=== PATIENT | female | born 1945 | race Caucasian/White ===

== ENCOUNTER 2025-02-12 11:40 | Emergency (ER) | payer MEDICARE, SELFPAY ==
[2025-02-12 12:29] VITALS: BP 137/64; PULSE 55; RESP 15; TEMP 36.8; O2SAT 98; BMI 23.3
--- NOTE | 2025-02-12 12:47 | ED.ABDPAIN ---
HPI - Abdominal Pain General Chief Complaint: Abdominal Pain Stated Complaint: Bleeding Hemorrhoids, increasing a couple weeks Time Seen by Provider: 02/12/25 11:48 Source: patient Mode of arrival: Family Vehicle History of Present Illness HPI narrative: Ms. Santiago is a pleasant 79-year-old female with a past medical history of internal hemorrhoids, hyperlipidemia who presents to the emergency department for lower abdominal pain and bleeding hemorrhoids x4 days. Patient describes over the last year she has had worsening lower abdominal pain, constipation, and more significant internal hemorrhoids however just on Saturday of this week they started to bleed requiring her to wear a pad in her underwear. Saturday and yesterday she soaked a pad with blood. Today she had blood dripping down her leg after going to the bathroom but it has since stopped. She has been unable to have a bowel movement 4 days due to constipation. She is having pain across her entire lower abdomen, she has no rectal pain unless she attempts to bear down. Describes her hemorrhoids as only internal however they do bulge out so she pushes them back in. She has had hemorrhoids for over 50 years and was told simply to push them back in however this is the 1st time they have bled. She does not have a primary care appointment until next month and is scheduled for an colonoscopy in April however due to her worsening pain and bleeding she presents to the ER after being instructed to do so by her primary care office triage nurse. She admits to bright red blood coming from the rectum and decreased appetite. She denies chest pain, shortness of breath, fevers, black or tarry stools, vomiting. She does not take any blood thinners. No history of abdominal surgeries. Her only prescription medication is pravastatin. She is not using any stool softeners or [id number] medications. Related Data Allergies Allergy/AdvReac Type Severity Reaction Status Date / Time No Known Drug Allergies Allergy Verified 02/12/25 12:29 Review of Systems Review of Systems ROS Unobtainable: All systems reviewed & are unremarkable except as noted in HPI and below Patient History Social History Smoking Status: Never smoker Smoking Status: Never smoker Exam Narrative Exam Narrative: GENERAL: 79 year old patient appears stated age. Well-developed active appearing patient, in no acute distress. HEAD: Atraumatic. Normocephalic. EYES: No scleral icterus. No injection or drainage. NECK: Trachea midline. Cervical ROM intact. CARDIOVASCULAR: Slightly slow rate and regular rhythm. RESPIRATORY: ?Nonlabored respirations. ?Speaking in clear, full sentences. ?Clear to auscultation. Breath sounds equal bilaterally. No wheezes, rales, or rhonchi. ? GASTROINTESTINAL: Tenderness to palpation across the entire lower abdomen, most significant the suprapubic region. Abdomen is soft, nondistended, bowel sounds present, no rebound or guarding. Patient gave verbal consent for rectal exam, female nurse student financial aid manager was present. No gross blood on exam. No external hemorrhoids. There was some palpable mass/internal hemorrhoid on the left with tenderness. EXTREMITIES: No LE edema BACK: No CVA tenderness. NEURO: AOx3. ?Clear speech. ?Moves all 4 extremities appropriately. SKIN: No rash or erythema of visible areas Initial Vital Signs Initial Vital Signs: Vital Signs Temperature 98.2 F 02/12/25 12:29 Pulse Rate 55 L 02/12/25 12:29 Respiratory Rate 15 02/12/25 12:29 Blood Pressure 137/64 02/12/25 12:29 Pulse Oximetry 98 02/12/25 12:29 Oxygen Delivery Method Room Air 02/12/25 12:29 Course Orders Ordered: ED Orders 02/12/25 13:00 CT abdomen pelvis w con Stat 02/12/25 13:15 Complete Blood Count AUTO DIFF Stat Comprehensive Metabolic Panel Stat Lipase Stat PT [Prothrombin Time INR] Stat PTT Partial Thromboplastin [place] Stat 02/12/25 15:08 Urinalysis and Microscopic Stat Urine Culture Stat Discontinued Medications Sodium Chloride (Normal Saline 0.9%) 1,000 mls @ 1,000 mls/hr IV BOLUS ONE Stop: 02/12/25 13:58 Last Infusion: 02/12/25 14:30 Dose: Infused Documented By: Admin: 02/12/25 13:26 Dose: 1,000 mls/hr Documented By: TIFFANIE Ondansetron HCl (Ondansetron 4 Mg/2 Ml Inj) 4 mg IV NOW ONE Stop: 02/12/25 13:00 Last Admin: 02/12/25 16:56 Dose: Not Given Documented By: TIFFANIE Pantoprazole Sodium (Pantoprazole 40 Mg Vial) 40 mg IV NOW ONE Stop: 02/12/25 13:00 Last Admin: 02/12/25 13:26 Dose: 40 mg Documented By: SB Vital Signs Vital signs: Vital Signs - 8 hr 02/12/25 12:29 02/12/25 17:00 Temperature 98.2 F 97.8 F Pulse Rate 55 L 54 L Respiratory Rate 15 16 Blood Pressure 137/64 149/58 H Pulse Oximetry 98 98 Oxygen Delivery Method Room Air Room Air MDM - Abdominal Pain Lab Data 02/12/25 13:15 02/12/25 13:15 Labs: Lab Results 02/12/25 02/12/25 Range/Units 13:15 15:08 WBC 6.1 (4.5-11.0) X10^3/uL RBC 3.93 L (4.0-5.2) X10^6/uL Hgb 12.2 (12.0-16.0) g/dL Hct 36.2 (36-46) % MCV 92.1 (80-100) fL MCH 31.0 (26-34) PG MCHC 33.7 (30-36) % RDW 12.7 (11.6-14.8) % Plt Count 220 (150-400) X10^3/uL Neut % (Auto) 65.5 (50-75) % Lymph % (Auto) 21.4 L (25-40) % [place] % (Auto) 9.6 (3-14) % Eos % (Auto) 2.9 (2-4) % Baso % (Auto) 0.6 (0-2) % Neut # (Auto) 4000 (6557-1513) /uL Lymph # (Auto) 1300 (5675-7272) /uL [place] # (Auto) 600 (0-900) /uL Eos # (Auto) 200 (0-450) /uL Baso # (Auto) 0 (0-100) /uL PT 11.6 (9.4-12.5) SECONDS INR 1.0 (0.9-1.3) APTT 30 (25.1-36.5) SECONDS Sodium 138 (137-145) mmol/L Potassium 3.9 (3.4-5.1) mmol/L Chloride 104 (98-107) mmol/L Carbon Dioxide 27 (22-32) mmol/L BUN 15 (7-17) mg/dL Creatinine 0.71 (0.52-1.04) mg/dL Estimated GFR > 60 (>60) mL/min BUN/Creatinine Ratio 21.1 (6-22) Glucose 106 H (70-99) mg/dL Calcium 9.0 (8.4-10.2) mg/dL Total Bilirubin 0.6 (0.2-1.3) mg/dL AST 31 (14-36) IU/L ALT 19 (<35) IU/L Alkaline Phosphatase 68 (38-126) U/L Total Protein 6.9 (6.3-8.2) g/dL Albumin 3.9 (3.5-5.0) g/dL Globulin 3.0 (1.7-4.1) g/dL Albumin/Globulin Ratio 1.3 (1.0-2.8) Lipase 28 (23-300) U/L Urine Color Yellow Urine Appearance Clear Urine pH 6.0 (4.5-8.0) Ur Specific [place] 1.010 (1.000-1.035) Urine Protein Negative (Negative) Urine Glucose (UA) Negative (Negative) g/dL Urine Ketones Trace H (NEGATIVE) Urine Occult Blood Trace-intact (Negative) Urine Nitrate Negative (Negative) Urine Bilirubin Negative (NEGATIVE) Urine Urobilinogen 0.2 (0.2) E.U./dL Ur Leukocyte Esterase 2+ H (NEGATIVE) Urine RBC None seen (0-5/HPF) Urine WBC 0-1/hpf (0-5/HPF) Ur Squamous Epith Cells None seen (0-5/HPF) Urine Bacteria Few (2-10) H (None) Ur Culture Indicated? Specimen cultured Vol Urine Centrifuged 10ml (spun) Imaging Data CT scan - abdomen/pelvis: Radiologist's Impression: PROCEDURE: CT ABDOMEN PELVIS W CON INDICATIONS: lower abd pain; constipation; bleeding hemorrhoids TECHNIQUE: After the administration of intravenous contrast, axial sections acquired from the lung bases to the pubic symphysis. Coronal and sagittal reformats were performed. For radiation dose reduction, the following was used: automated exposure control, adjustment of mA and/or kV according to patient size. COMPARISON: None. FINDINGS: Image quality: Diagnostic. Lower Chest: No significant findings. ABDOMEN: Liver: No solid mass. Gallbladder: No radiopaque gallstones or wall thickening. Biliary ducts: No biliary dilation. Pancreas: No ductal dilation. Spleen: Size is within normal limits. Adrenal Glands: No adrenal nodules. Kidneys and Ureters: No hydronephrosis. No solid mass. No complex renal cystic lesion which requires follow up. Stomach and Bowel: Normal colonic caliber, without significant wall thickening. Normal appendix. No significant diverticular disease. Prominent turn hemorrhoids, with mixed attenuating debris in the lower rectum. Peritoneum: No abnormal intraperitoneal fluid. No free air. Ventral Wall: No significant ventral hernia. Abdominal Nodes: No retroperitoneal or mesenteric adenopathy by size criteria. Vessels: Aorta and inferior vena cava are normal in size. PELVIS: Pelvic Organs: Unremarkable. Bladder: No bladder wall thickening, accounting for underdistention. Pelvic Nodes: No enlarged lymph nodes. Miscellaneous: No inguinal hernias are seen. Bones: No aggressive osseous abnormality. Chronic compression deformity of the L2 vertebral body. Osteoporosis. IMPRESSION: Large internal hemorrhoids, with mixed attenuating debris in the lower rectum which could represent blood products. Findings discussed with ordering provider at time of dictation. Rectal exam was performed and no significant rectal bleeding was noted at time of exam. Dictated by: Juan J Barajas M.D. on 02/12/2025 at 14:25 Approved by: Juan J Barajas M.D. on 02/12/2025 at 14:30 MDM Narrative Medical decision making narrative: 79-year-old female with a past medical history of internal hemorrhoids, hyperlipidemia who presents to the emergency department for lower abdominal pain and bleeding hemorrhoids x4 days. Differential diagnosis includes but is not limited to diverticulitis, diverticulosis, colitis, colorectal mass, internal hemorrhoids, external hemorrhoids, bleeding hemorrhoid, thrombosed hemorrhoid, perirectal abscess, anemia, UTI, appendicitis, etc. On exam the patient is in no acute distress, nontoxic appearing, vital signs appropriate. She has diffuse nonfocal tenderness to palpation of the entire lower abdomen without rebound or guarding. She is having bright red blood from the rectum for the last 4 days associated with constipation and painful hemorrhoids. She has never had abdominal surgeries. We will obtain CBC, CMP, coags, CT abdomen pelvis IV contrast. We will perform rectal exam. We will treat with Protonix, fluids, Zofran. 1330: Patient gave verbal consent for rectal exam, female nurse student financial aid manager was present. No gross blood on exam. No external hemorrhoids. There was some palpable mass/internal hemorrhoid on the left with tenderness. Labs reveal normal WBC count 6.1, slightly decreased RBC count 3.93. Normal hemoglobin 12.2 hematocrit 36.2. Normal platelets 220. Normal coags. CT scan reveals a large internal hemorrhoids with mixed attenuating debris in the lower rectum which could represent blood products. Will consult gen surg for further discussion. Gen Surg, Dr. Garcia, came down and evaluated the patient at bedside. He offered surgery versus supportive care and the patient opted to go home and follow up with her scheduled surgery appointment on Saturday. He recommended MiraLax, Sitz baths, tucks pads, preparation H this weekend. I discussed strict ED return precautions with the patient. She verbalized understanding of all information and is agreeable to the plan. She is stable for discharge home. Discharge Plan Departure Patient Disposition: Home Clinical Impression: Bleeding hemorrhoids, Abdominal pain, lower Constipation Qualifiers: Constipation type: unspecified constipation type Qualified Code(s): K59.00 - Constipation, unspecified Instructions: DI for Hemorrhoids, DI for Constipation Activity Restrictions/Additional Instructions: Dear Jack, Thank you for coming to the emergency department. Today you were evaluated for lower abdominal pain, constipation, bleeding hemorrhoids. Lab work and a CT scan was obtained. Our on-call general surgeon, Dr. Garcia, came down and saw you. At this time he recommends supportive care with MiraLax stool softener, preparation H, Tucks Pads. Please rest, hydrate, follow his recommendations, and follow up with your surgeon on Saturday. Please return to the emergency department if you develop severe pain, significant bleeding causing lightheadedness dizziness shortness of breath or any other concerns, fevers, vomiting or any worsening of symptoms. Please follow up with your primary care doctor within the next 2-3 days for ER follow-up. (If you do not have a PCP you can call [phone]. ?to schedule an appointment with an [facility] Primary Care Provider) IF YOU DEVELOP ANY NEW OR WORSENING SYMPTOMS, RETURN TO THE ER! Please read the attached instructions, they highlight more specific treatments and interventions for you at home. Thank you for letting me participate in your care, Rachana Dover PA-C Stand Alone Forms: Patient Portal/API
--- NOTE | 2025-02-12 13:00 | DI.CT.S_ITS ---
PROCEDURE: CT ABDOMEN PELVIS W CON INDICATIONS: lower abd pain; constipation; bleeding hemorrhoids TECHNIQUE: After the administration of intravenous contrast, axial sections acquired from the lung bases to the pubic symphysis. Coronal and sagittal reformats were performed. For radiation dose reduction, the following was used: automated exposure control, adjustment of mA and/or kV according to patient size. COMPARISON: None. FINDINGS: Image quality: Diagnostic. Lower Chest: No significant findings. ABDOMEN: Liver: No solid mass. Gallbladder: No radiopaque gallstones or wall thickening. Biliary ducts: No biliary dilation. Pancreas: No ductal dilation. Spleen: Size is within normal limits. Adrenal Glands: No adrenal nodules. Kidneys and Ureters: No hydronephrosis. No solid mass. No complex renal cystic lesion which requires follow up. Stomach and Bowel: Normal colonic caliber, without significant wall thickening. Normal appendix. No significant diverticular disease. Prominent turn hemorrhoids, with mixed attenuating debris in the lower rectum. Peritoneum: No abnormal intraperitoneal fluid. No free air. Ventral Wall: No significant ventral hernia. Abdominal Nodes: No retroperitoneal or mesenteric adenopathy by size criteria. Vessels: Aorta and inferior vena cava are normal in size. PELVIS: Pelvic Organs: Unremarkable. Bladder: No bladder wall thickening, accounting for underdistention. Pelvic Nodes: No enlarged lymph nodes. Miscellaneous: No inguinal hernias are seen. Bones: No aggressive osseous abnormality. Chronic compression deformity of the L2 vertebral body. Osteoporosis. IMPRESSION: Large internal hemorrhoids, with mixed attenuating debris in the lower rectum which could represent blood products. Findings discussed with ordering provider at time of dictation. Rectal exam was performed and no significant rectal bleeding was noted at time of exam. Dictated by: Juan J Barajas M.D. on 02/12/2025 at 14:25 Approved by: Juan J Barajas M.D. on 02/12/2025 at 14:30
[2025-02-12] MEDS: PANTOPRAZOLE 40 MG VIAL IV (13:26)
[2025-02-12] MEDS: SODIUM CHLORIDE 0.9% 1,000 ML 1000 ML IV (13:26)
[2025-02-12 13:31] LABS: Add Manual Diff / Slide Review NO; Hematocrit 36.2 % (36-46); Hemoglobin 12.2 g/dL (12.0-16.0); Lymphocytes Absolute Auto 1300 /uL (1100-4500); Mean Corpuscular HGB Conc 33.7 % (30-36); Mean Corpuscular Hemoglobin 31.0 PG (26-34); Mean Corpuscular Volume 92.1 fL (80-100); Platelet Count 220 X10^3/uL (150-400)
[2025-02-12 13:39] LABS: INR 1.0 (0.9-1.3); Prothrombin Time 11.6 SECONDS (9.4-12.5)
[2025-02-12 13:41] LABS: PTT Partial Thromboplastin Tim 30 SECONDS (25.1-36.5)
[2025-02-12 13:44] LABS: Alanine Aminotransferase 19 IU/L (<35); Albumin 3.9 g/dL (3.5-5.0); Albumin Globulin Ratio 1.3 (1.0-2.8); Alkaline Phosphatase 68 U/L (38-126); Blood Urea Nitrogen 15 mg/dL (7-17); Calcium 9.0 mg/dL (8.4-10.2); Carbon Dioxide 27 mmol/L (22-32); Chloride 104 mmol/L (98-107); Estimated Glomerular Filt Rate > 60 mL/min (>60); Globulin 3.0 g/dL (1.7-4.1); Glucose 106 mg/dL (70-99); HEMOLYSIS 23 (0-50); Lipase 28 U/L (23-300); Potassium 3.9 mmol/L (3.4-5.1); Sodium 138 mmol/L (137-145); Total Protein 6.9 g/dL (6.3-8.2)
[2025-02-12 15:53] LABS: Appearance Urine UA CLEAR; Bilirubin Urine UA NEGATIVE (NEGATIVE); Color Urine UA YELLOW; Glucose Urine UA NEGATIVE (Negative); Ketones Urine UA TRACE (NEGATIVE); Leukocyte Esterase Urine UA 2+ (NEGATIVE); Nitrite Urine UA NEGATIVE (Negative); Occult Blood Urine UA TRACE-INTACT (Negative); Protein Urine UA NEGATIVE (Negative); Specific Gravity Urine UA 1.010 (1.000-1.035); Urobilinogen Urine UA 0.2 E.U./dL (0.2)
[2025-02-12 16:06] LABS: pH Urine UA 6.0 (4.5-8.0)
[2025-02-12 16:12] LABS: Culture Indicated Urine Specimen Cultured
[2025-02-12 17:00] VITALS: BP 149/58; PULSE 54; RESP 16; TEMP 36.6; O2SAT 98
--- NOTE | 2025-02-12 20:39 | P.HP_ITS ---
History of Present Illness History of Present Illness Date Patient Seen: 02/12/25 Time Patient Seen: 04:00 Date of Onset of Symptoms: 01/22/25 Chief complaint: Bleeding Hemorrhoids, increasing a couple weeks Narrative: Patient is a 79-year-old white female who was seen in fast track for rectal bleeding x3 weeks states it is causing the toilet water to be pink or red states that she has had vertigo she thought she had syncope she was not quite sure 3 weeks ago. Patient has had problems with hemorrhoids for considerable period of time is scheduled to see Dr. Reis in his office on 02/15/2025. Patient has had some perianal pain she is having difficulty moving her bowels. I was asked see the patient for evaluation. Patient states she desires not to be admitted to the hospital and she does not desire to have surgery at this time she would like to go home. And be worked up outpatient we will also an outpatient colonoscopy which she has never had. Patient had laboratory performed showed a WBC of 6.1 hemoglobin is 12.2 hematocrit is 36.2 platelets are 220,000 PT is 11.6 PTT is 30 sodium is 138 potassium 3.9 chloride 104 bicarb is 27 BUN of 15 creatinine is 0.71 random blood sugar is [address] scan was performed which showed no acute pathology. Radiology read pending. Allergies NKDA Medications: Preparation H Past medical history: Corrective lenses, 2 para 2 ab 0, hyperlipidemia, obesity. Patient denies any other heart lungs digestive musculoskeletal neurological seizure disorder psychiatric problems or so Infectious diseases HIV or AIDS. Past surgical history: Unremarkable patient has never had a screening colonoscopy Social history: Patient denies any tobacco alcohol or recreational drug usage : Vitals temperature is 98.2? pulse 55 respirations 15 BP is 137/64 Patient head is normocephalic eyes PERRLA EOMI is intact nares are clear septum midline EACs and pinnae unremarkable oropharyngeal cavity is in moderate repair heart regular rate and rhythm without murmurs lungs are clear to auscultation no rales or wheezes noted poor inspiratory and expiratory effort poor chest wall motion noted. Abdomen is soft slightly obese nondistended negative Petey's Becerra returns Donovan's McBurney's no masses or peritoneal signs. Musculoskeletal moderate muscle tone and strength equal bilaterally no gross deficit elicited. Rectal exam was performed with nurse in attendance patient was placed in the prone position no external hemorrhoids were noted [place] jelly was applied anal stenosis was noted patient was noted to have a small posterior anal fissure a left posterior internal hemorrhoid that could not be delivered appeared to be non swollen inflamed no other masses were noted. No signs of blood in the examining finger. Impression: History of rectal bleeding with hemorrhoids times several weeks. Perianal pain secondary to fissure with anal stenosis Plan: Discussed with patient the findings discussed being admitted in the hospital and worked up for the pain patient states she desires to go home if she has any problems we will return the patient has a follow-up with Dr. Reis on 02/15/2025 for outpatient workup with the hemorrhoids and outpatient colonoscopy. Patient was discussed the need for Sitz baths tucks pads preparation H Anusol ointment MiraLax for her stools return if any problems questions or concerns. All questions were answered to patient's satisfaction. Return if any problems questions or concerns. [facility] Social History Smoking Status: Never smoker Meds Home Medications and Allergies Allergies Allergy/AdvReac Type Severity Reaction Status Date / Time No Known Drug Allergies Allergy Verified 02/12/25 12:29 Exam Vital Signs (past 8 hours): - 02/12/25 17:00 Temperature 97.8 F Pulse Rate 54 L Respiratory Rate 16 Blood Pressure 149/58 H Pulse Oximetry 98 Oxygen Delivery Method Room Air Oxygen Delivery Method Room Air Objective Labs 02/12/25 13:15 02/12/25 13:15 Labs: Laboratory Results - last 24 hr 02/12/25 02/12/25 13:15 15:08 WBC 6.1 RBC 3.93 L Hgb 12.2 Hct 36.2 MCV 92.1 MCH 31.0 MCHC 33.7 RDW 12.7 Plt Count 220 Neut % (Auto) 65.5 Lymph % (Auto) 21.4 L [place] % (Auto) 9.6 Eos % (Auto) 2.9 Baso % (Auto) 0.6 Neut # (Auto) 4000 Lymph # (Auto) 1300 [place] # (Auto) 600 Eos # (Auto) 200 Baso # (Auto) 0 PT 11.6 INR 1.0 APTT 30 Sodium 138 Potassium 3.9 Chloride 104 Carbon Dioxide 27 BUN 15 Creatinine 0.71 Estimated GFR > 60 BUN/Creatinine Ratio 21.1 Glucose 106 H Calcium 9.0 Total Bilirubin 0.6 AST 31 ALT 19 Alkaline Phosphatase 68 Total Protein 6.9 Albumin 3.9 Globulin 3.0 Albumin/Globulin Ratio 1.3 Lipase 28 Urine Color Yellow Urine Appearance Clear Urine pH 6.0 Ur Specific [place] 1.010 Urine Protein Negative Urine Glucose (UA) Negative Urine Ketones Trace H Urine Occult Blood Trace-intact Urine Nitrate Negative Urine Bilirubin Negative Urine Urobilinogen 0.2 Ur Leukocyte Esterase 2+ H Urine RBC None seen Urine WBC 0-1/hpf Ur Squamous Epith Cells None seen Urine Bacteria Few (2-10) H Ur Culture Indicated? Specimen cultured Vol Urine Centrifuged 10ml (spun) Assessment & Plan Time-Based Coding :: [TOTAL MINUTES] spent with patient and on the chart (including review of chart, obtaining history, exam, reviewing outside data, placing orders, documenting exam and treatment plan, and counseling patient) on [DATE]. [employer] Document charge(s): Yes
== END 2025-02-12 17:00 | disposition home or self-care (01) ==
PROVIDERS: Emergency Provider Physician Assistant
DX: K64.9 Unspecified hemorrhoids (principal); R10.30 Lower abdominal pain, unspecified; K59.00 Constipation, unspecified
CPT/HCPCS: 36415; 74177; 80053; 81001; 83690; 85025; 85610; 85730; 87086; 96361; 96374; 99284; J2470; Q9967